=== PATIENT | male | born 1990 | race African-American/Black ===

== ENCOUNTER 2018-03-14 10:00 | Emergency (ER) | payer OTHER ==
[~2018-03-14] VITALS: Ht 188 cm; Wt 99.8 kg
[2018-03-14 10:04] VITALS: BP 136/79
[2018-03-14] MEDS ORDERED: AMOXICILLIN500 M2 PO (10:34)
--- NOTE | 2018-03-14 10:36 | ED THROAT/DENTAL COMPLAINT ---
History of Present Illness General Chief Complaint: Sore Throat, Dental Pain Stated Complaint: SORE THROAT Source: patient Exam Limitations: no limitations Vital Signs & Intake/Output Vital Signs & Intake/Output Vital Signs Date Time Temp Pulse Resp B/P B/P Pulse O2 O2 Flow FiO2 Mean Ox Delivery Rate 03/14 1008 101.2 03/14 1004 101.2 90 18 136/79 98 Room Air Allergies Coded Allergies: NO KNOWN ALLERGIES (04/10/15) Reconcile Medications Amoxicillin 500 MG CAPSULE 1 CAP PO TID Throat infection Triage Note: PT STATES HE THINKS HE HAS STREP THROAT HAS WHITE PATCHES ON HIS TONISILS AND THROAT PAIN. PT STATES PAIN BETAN 2 DAYS AGO. Triage Nurses Notes Reviewed? yes HPI: 28-year-old male with no significant past medical history came to ED with chief complaint of throat pain, fever, chills and generalized weakness with sweating for last 2 days. Patient reported that 2 days ago he started to experience throat pain and fever. According the patient is not able to eat anything because of the throat pain but he is able to drink water. Patient reported decreased appetite. He reported that he noticed having white patches on the tonsil bilaterally in the mirror. He also reported having mild headache and sweating. Patient tried [id number] medications but he didn't get better bedside decided to come to ED. Patient denied sick contact, recent traveling, nausea, vomiting, chest pain, palpitations, lightheadedness, diarrhea, constipation, abdominal pain and dysuria. According the patient he had similar complaints 5 years back and he went to the urgent care clinic and the doctor prescribed him amoxicillin and he got better. (Fawad Maldonado MD) Past History Travel History Traveled to [place] past 21 day No Medical History Any Pertinent Medical History? none Neurological: NONE EENT: NONE Cardiovascular: NONE Respiratory: NONE Gastrointestinal: NONE Hepatic: NONE Renal: NONE Musculoskeletal: NONE Psychiatric: NONE Endocrine: NONE Blood Disorders: NONE Cancer(s): NONE Surgical History Surgical History: non-contributory Psychosocial History What is your primary language Indonesian Tobacco Use: Never used ETOH Use: occasional use Illicit Drug Use: denies illicit drug use Family History Hx Contributory? No (Fawad Maldonado MD) Review of Systems Review of Systems Constitutional: Reports: chills, fever, weakness. EENTM: Reports: throat pain. Respiratory: Denies: cough, short of breath, sputum production, wheezing. Cardiovascular: Denies: chest pain, palpitations, syncope. GI: Denies: abdominal pain, constipation, diarrhea, nausea, vomiting. Genitourinary: Reports: no symptoms. Neurological/Psychological: Reports: no symptoms. (Fawad Maldonado MD) Physical Exam Physical Exam General Appearance: well developed/nourished, no apparent distress, alert Head: atraumatic, normal appearance Eyes: Bilateral: normal appearance, PERRL, EOMI. Ears: Bilateral: canal normal. Nose: normal inspection Mouth/Throat: tonsillar exudate, tonsillar swelling, erthema of posterior pharyngeal wall, erythema of tonsills and tonsillar pillars Neck: normal inspection, supple, Right cervical lymphadenopathy Cardiovascular/Respiratory: normal breath sounds Gastrointestinal: NBS Neurologic/Psych: no motor/sensory deficits, awake, alert, oriented x 3 Core Measures ACS in differential dx? No Sepsis Present: No Sepsis Focused Exam Completed? No (Fawad Maldonado MD) Progress Differential Diagnosis: quincy-tonsillar abscess, strep pharyngitis, EBV infection Plan of Care: Orders Procedure Date/time Status THROAT CULTURE W/QUICK STREP 03/14 1008 Complete Comments: On physical examination patient clearly has streptococcal throat infection, considering his enlarged tonsils with white patches, fever and right-sided cervical lymphadenopathy. His streptococcal throat swell came back positive. We will prescribe patient amoxicillin 500 mg 3 times a day for 10 days. Patient is instructed to complete 10 days course to prevent streptococcal nephritis. Patient was instructed to take Tylenol [id number] for fever and pain. Patient was instructed to come back to ED if his symptoms worsens. (Fawad Maldonado MD) Departure Departure Disposition: HOME OR SELF CARE Condition: Stable Clinical Impression Primary Impression: Strep throat Referrals: Unknown (PCP/Family) Additional Instructions: Please follow up with her primary care physician in one week. Please take your medications regularly 3 times a day for 10 days. Please complete short antibiotic course for 10 days to decrease the risk of streptococcal nephritis. If you experience any worsening of symptoms come back to ED. Patient was instructed to take Tylenol for pain and fever. Departure Forms: Customer Survey General Discharge Information Prescriptions: Current Visit Scripts Amoxicillin 1 CAP PO TID #30 CAP (Fawad Maldonado MD) Resident Co-Sign Statement Statement: ED Attending supervision documentation- [X] I saw and evaluated the patient. I have also reviewed all the pertinent lab results and diagnostic results. I agree with the findings and the plan of care as documented in the Resident's documentation. [X] I have reviewed the ED Record and agree with the Resident's documentation. [] Additions or exceptions (if any) to the Resident's note and plan are summarized below: [] (Dale BEVERLY,Christopher Charles)
== END 2018-03-14 10:51 ==
LOC: ERH 10:00
DX: J20.0 Acute bronchitis due to Mycoplasma pneumoniae (principal)

== ENCOUNTER 2018-03-21 09:12 | Emergency (ER) | payer OTHER ==
[~2018-03-21] VITALS: Ht 188 cm; Wt 99.8 kg
[~2018-03-21 09:12] MED LIST: AMOXICILLIN500 M2 PO
[2018-03-21 09:38] VITALS: BP 148/77
[2018-03-21] MEDS ORDERED: AUGMENTIN 875-1 EACH PO (10:20)
[2018-03-21] MEDS ORDERED: PREDNISONE50 M1 PO (10:20)
--- NOTE | 2018-03-21 10:20 | ED THROAT/DENTAL COMPLAINT ---
History of Present Illness General Chief Complaint: Sore Throat, Dental Pain Stated Complaint: SORE THROAT Source: patient, old records Exam Limitations: no limitations Vital Signs & Intake/Output Vital Signs & Intake/Output Vital Signs Date Time Temp Pulse Resp B/P B/P Pulse O2 O2 Flow FiO2 Mean Ox Delivery Rate 03/21 0938 99.8 86 16 148/77 96 Room Air Allergies Coded Allergies: NO KNOWN ALLERGIES (04/10/15) Reconcile Medications Amoxicillin 500 MG CAPSULE 1 CAP PO TID Throat infection Amoxicillin/Potassium Clav (Augmentin 875-125 Tablet) 875 MG-125 MG TABLET 1 TAB PO BID pahryngitis Prednisone 50 MG TABLET 1 TAB PO DAILY pharyngitis Triage Note: 28 Y/O MALE C/O SORE THROAT X 24 HOURS. PT STATES HE WAS DIAGNOSED WITH STREP 7 DAYS AGO AND IS CURRENTLY STILL ON AMOXICILLAN. STATES "IT WENT AWAY BUT THEN CAME BACK YESTERDAY". TOOK MOTRIN YESTERDAY WITH RELIEF OF FEVER, PER PT. QUICK STREP SENT. Triage Nurses Notes Reviewed? yes Onset: Abrupt Duration: day(s): (3), constant, continues in ED Timing: recent history Severity: mild, moderate Severity Numbers: 6 HPI: 28-year-old male with no medical history presents for evaluation of sore throat. Patient states that he was seen here about a week ago and diagnosed with strep throat. He was started on amoxicillin. He states that his symptoms resolve completely until about 3 days ago when his sore throat returned. Patient states that he feels like the swelling Is not as bad this time but the pain is still there. He is able to eat and drink. There's been no fever now. No rashes tolerating the amoxicillin well. He reports that he has had strep throat on several occasions recently. He denies any abdominal pain nausea vomiting. (Melchor Damian) Past History Travel History Traveled to [place] past 21 day No Medical History Any Pertinent Medical History? see below for history Neurological: NONE EENT: NONE Cardiovascular: NONE Respiratory: NONE Gastrointestinal: NONE Hepatic: NONE Renal: NONE Musculoskeletal: NONE Psychiatric: NONE Endocrine: NONE Blood Disorders: NONE Cancer(s): NONE Surgical History Surgical History: non-contributory Psychosocial History What is your primary language Turkish Tobacco Use: Quit >30 days ago Family History Hx Contributory? No (Melchor Damian) Review of Systems Review of Systems Constitutional: Reports: no symptoms. EENTM: Reports: see HPI, throat pain, throat swelling. Respiratory: Reports: no symptoms. Cardiovascular: Reports: no symptoms. GI: Reports: no symptoms. Genitourinary: Reports: no symptoms. Musculoskeletal: Reports: no symptoms. Skin: Reports: no symptoms. Neurological/Psychological: Reports: no symptoms. Hematologic/Endocrine: Reports: no symptoms. Immunologic/Allergic: Reports: no symptoms. All Other Systems: Reviewed and Negative (Melchor Damian) Physical Exam Physical Exam General Appearance: well developed/nourished, no apparent distress, alert, awake Head: atraumatic, normal appearance Eyes: Bilateral: normal appearance, PERRL, EOMI. Ears: Bilateral: canal normal, Tympanic normal. Nose: normal inspection Mouth/Throat: normal mouth inspection, tonsillar exudate, tonsillar swelling, tonsils are 2+ bilaterally with erythema and small amount of exudate no uvular deviation no trismus patient is handling secretions Neck: normal inspection, supple, full range of motion, lymphadenopathy (R), lymphadenopathy (L), no posterior lymph nodes Cardiovascular/Respiratory: normal breath sounds, normal peripheral pulses, regular rate/rhythm, no respiratory distress Gastrointestinal: soft nontender Back: normal inspection, normal range of motion Neurologic/Psych: no motor/sensory deficits, awake, alert, oriented x 3, normal gait Skin: intact, normal color, warm/dry Core Measures ACS in differential dx? No Sepsis Present: No Sepsis Focused Exam Completed? No (Melchor Damian) Progress Differential Diagnosis: epiglottitis, Ludwigs angina, quincy-tonsillar abscess, pharyngeal for. body, stomatitis/gingivitis, strep pharyngitis, tooth fracture Plan of Care: Orders Procedure Date/time Status THROAT CULTURE W/QUICK STREP 03/21 1463 Active Patient is here for evaluation of a sore throat. He was seen here a week ago started on amoxicillin for a sore throat then his symptoms returned. On exam there is no evidence of abscess is no clinical signs of mono. Patient did not develop a rash after taking amoxicillin. On exam he does have mildly enlarged erythematous tonsils with small amount of exudate. He has no abdominal pain no rashes. Patient will be started on a prednisone burst and switch to Augmentin. He'll be given a referral to ear nose and throat. Discussed symptomatic treatment with Tylenol and ibuprofen. Discussed return precautions patient agrees to plan (Melchor Damian) Departure Departure Disposition: HOME OR SELF CARE Condition: Stable Clinical Impression Primary Impression: Pharyngitis Qualifiers: Pharyngitis/tonsillitis etiology: unspecified etiology Qualified Code: J02.9 - Acute pharyngitis, unspecified Referrals: Unknown (PCP/Family) Additional Instructions: discontinue amoxicillin and start augmentin. also take prednisone for full course. tylenol/ibuprofen for pain. make a follow up with provided ENT docotor. monitor your symptosm return with any concenrs. Departure Forms: Customer Survey General Discharge Information Prescriptions: Current Visit Scripts Amoxicillin/Potassium Clav (Augmentin 875-125 Tablet) 1 TAB PO BID #20 TAB Prednisone 1 TAB PO DAILY #5 TAB (Melchor Damian) PA/[employer]INGER Co-Sign Statement Statement: ED Attending supervision documentation- [] I saw and evaluated the patient. I have also reviewed all the pertinent lab results and diagnostic results. I agree with the findings and the plan of care as documented in the PA's/HAM STRINGER's documentation. [x] I have reviewed the ED Record and agree with the PA's/HAM STRINGER's documentation. [] Additions or exceptions (if any) to the PAs/HAM STRINGER's note and plan are summarized below: [] (Sita BEVERLY,[facility])
== END 2018-03-21 10:22 ==
LOC: ERH 09:12
DX: J02.9 Acute pharyngitis, unspecified (principal); Z87.891 Personal history of nicotine dependence

== ENCOUNTER 2018-05-07 07:26 | Emergency (ER) | payer OTHER ==
[~2018-05-07 07:26] MED LIST changes: +AMOXICILLIN500 M3 PO; +AUGMENTIN 875-1 EACH PO; +PREDNISONE50 M1 PO
--- NOTE | 2018-05-07 07:54 | ED GENERAL ADULT ---
History of Present Illness General Chief Complaint: Sore Throat, Dental Pain Stated Complaint: SORE THROAT Source: patient Exam Limitations: no limitations Vital Signs & Intake/Output Vital Signs & Intake/Output Vital Signs Date Time Temp Pulse Resp B/P B/P Pulse O2 O2 Flow FiO2 Mean Ox Delivery Rate 05/07 0733 98.6 90 18 145/80 98 Room Air Allergies Coded Allergies: NO KNOWN ALLERGIES (04/10/15) Triage Note: 28 YO MALE TO ER FOR SORRE TRHOAT SINCE YESTERDAY Triage Nurses Notes Reviewed? yes HPI: Patient is a 28-year-old male who is presenting to the emergency department with complaints of pain with swallowing and headaches for 1 day. Symptoms are accompanied with clear nasal discharge. Swollen tonsils and on patient's examination he states there was white discharge. Patient states his girlfriend is having sinus congestion and possible infection for which she was treated with nasal saline and no antibiotics. Patient denies fever, abdominal pain, diarrhea. (Sam BEVERLY,Shwetha) Reconcile Medications Amoxicillin 500 MG TABLET 2 TAB PO BID strep throat x 10 days Amoxicillin 500 MG CAPSULE 1 CAP PO TID Throat infection Amoxicillin/Potassium Clav (Augmentin 875-125 Tablet) 875 MG-125 MG TABLET 1 TAB PO BID pahryngitis Penicillin V Potassium 500 MG TABLET 1 TAB PO BID Strep Throat Prednisone 50 MG TABLET 1 TAB PO DAILY pharyngitis (Sita BEVERLY,[facility]) Past History Travel History Traveled to [place] past 21 day No Medical History Any Pertinent Medical History? none Neurological: NONE EENT: NONE Cardiovascular: NONE Respiratory: NONE Gastrointestinal: NONE Hepatic: NONE Renal: NONE Musculoskeletal: NONE Psychiatric: NONE Endocrine: NONE Blood Disorders: NONE Cancer(s): NONE Surgical History Surgical History: non-contributory Psychosocial History What is your primary language Amharic Tobacco Use: Never used Family History Hx Contributory? No (Sam BEVERLY,Shwetha) Review of Systems Review of Systems Constitutional: Denies: chills, diaphoresis, fever. EENTM: Reports: throat pain. Denies: visual changes, eye drainage, ear pain. Respiratory: Denies: cough, short of breath. Cardiovascular: Denies: chest pain, palpitations. Genitourinary: Denies: discharge, dysuria. Comments Rapid Strep is positive (Sam BEVERLY,Shwetha) Physical Exam Physical Exam General Appearance: well developed/nourished, no apparent distress Head: atraumatic, normal appearance Ears, Nose, Throat: pharyngeal erythema, tonsillar exudate, tonsillar swelling, Uvula midline Neck: supple Respiratory: normal breath sounds, lungs clear Cardiovascular: regular rate/rhythm, normal peripheral pulses Peripheral Pulses: 4+ dorsalis pedis (R), 4+ dorsalis pedis (L) Gastrointestinal: normal bowel sounds, soft, non-tender Core Measures ACS in differential dx? No CVA/TIA Diagnosis: No Sepsis Present: No Sepsis Focused Exam Completed? No (Shwetha Vargas MD) Progress Differential Diagnoses I considered the following diagnoses in my evaluation of the patient: Strep Pharyngitis Infectious mono Dejah-tonsillar Abscess Plan of Care: Orders Procedure Date/time Status THROAT CULTURE W/QUICK STREP 05/07 7172 Complete Initial ED EKG: none (Shwetha Vargas MD) Comments: 28-year-old male presents with pain with swallowing, sore throat, nasal discharge for the past 1 day. Sick contact with with his girlfriend who has sinusitis-like symptoms. He also reports of tonsillar swelling and discharge. Physical exam reveals tonsillitis without lymphadenopathy. No airway compromise , uvular deviation, no signs of peritonsillar abscess. The patient is in no distress. Plan: Rapid strep, treat if positive, otherwise symptomatic treatment. (Josie Buckner MD) Departure Departure Disposition: HOME OR SELF CARE Condition: Stable Clinical Impression Primary Impression: Strep pharyngitis Referrals: Patient Has No Primary Care Dr (PCP/Family) Departure Forms: Customer Survey General Discharge Information Prescriptions: Current Visit Scripts Penicillin V Potassium 1 TAB PO BID #20 TAB (Shwetha Vargas MD) PA/[employer] Co-Sign Statement Statement: ED Attending supervision documentation- [] I saw and evaluated the patient. I have also reviewed all the pertinent lab results and diagnostic results. I agree with the findings and the plan of care as documented in the PA's/[employer]'s documentation. [x] I have reviewed the ED Record and agree with the PA's/[employer]'s documentation. [] Additions or exceptions (if any) to the PAs/[employer]OCIATE's note and plan are summarized below: [] (Josie Buckner MD) Critical Care Note Critical Care Note Critical Care Time: non-applicable (Shwetha Vargas MD) ED Attending Observation Initial Observation Note: I have seen and personally examined SAMARIA BUTLER on 05/07/18 at 0843. I agree with the current emergency department documentation. The disposition (admission or discharge) is uncertain at this time, he needs a period of observation for the following reason(s): The ED Nurse caring for this patient has been personally informed as to what the patient is being observed for. (Sam BEVERLY,Shwetha)
[2018-05-07] MEDS ORDERED: PENICILLIN V P500 M1 PO (08:43)
[2018-05-07 08:47] VITALS: BP 134/78
== END 2018-05-07 08:50 ==
LOC: ERH 07:26
DX: J02.0 Streptococcal pharyngitis (principal)